=== PATIENT | male | born 1970 | race Caucasian/White ===

== ENCOUNTER 2022-01-13 08:37 | Outpatient (CLI) | payer OTHER ==
[~2022-01-13 08:37] MED LIST: ZESTRIL2.5 MG
== END 2022-01-13 12:47 | disposition home or self-care (01) ==
LOC: NUCLEAR 08:37
PROVIDERS: ATTEND Internal Medicine
DX: R00.1 Bradycardia, unspecified (principal); R55 Syncope and collapse

== ENCOUNTER 2023-06-19 20:33 | Emergency (ER) | payer OTHER ==
[~2023-06-19] VITALS: Ht 180.3 cm; Wt 101.2 kg
[2023-06-19] MEDS ORDERED: DICLOFENAC SOD100 GM TP (21:21)
[2023-06-19] MEDS ORDERED: BUPROPION XL150 MG PO (21:22)
[2023-06-19] MEDS ORDERED: METOPROLOL SUCC50 MG PO (21:22)
== END 2023-06-19 22:23 | disposition home or self-care (01) ==
LOC: ER 20:33
DX: R53.81 Other malaise (principal); H81.10 Benign paroxysmal vertigo, unspecified ear

== ENCOUNTER 2023-09-19 06:05 | Emergency (ER) | payer OTHER ==
[~2023-09-19] VITALS: Ht 180.3 cm; Wt 99.8 kg
[~2023-09-19 06:05] MED LIST changes: +BUPROPION XL150 MG PO; +DICLOFENAC SOD100 GM TP; +METOPROLOL SUCC50 MG PO
[2023-09-19 08:59] LABS: URINE APPEARANCE Clear; URINE BILIRRUBIN Negative (NEGATIVE); URINE BLOOD Negative; URINE COLOR Yellow; URINE GLUCOSE Negative (NEGATIVE); URINE LEUKOCYTE Negative; URINE NITRATE Negative; URINE PROTEIN Trace (NEGATIVE)
[2023-09-19 09:00] LABS: URINE EPITHELIAL CELLS 1.6 uL (0.0-38.8); URINE RBC 5.7 uL (0.0-20.8); URINE WBC 2.1 uL (0.0-23.2)
[2023-09-19 09:07] LABS: HEMATOCRIT 49.3 % (39.0-48.0); HEMOGLOBIN 16.6 g/dL (13-16.00); MEAN CORPUSCULAR HEMOGLOBIN 27.9 pg (27.00-32.0); MEAN CORPUSCULAR HGB CONC 33.6 g/dl (32.0-36.0); PLATELET COUNT 181 K/uL (150-450); RED BLOOD COUNT 5.94 M/uL (4.00-6.00); RED CELL DISTRIBUTION WIDTH 13.7 % (11.5-14.5)
[2023-09-19 10:14] LABS: ALBUMIN 4.1 gm/dL (3.4-5.0); BILIRUBIN TOTAL 1.52 mg/dL (0.3-1.2); CREATININE SERUM 1.26 mg/dL (0.70-1.30); GFR 60.33; GLOBULINA 4.5 G/DL (2.4-3.5); POTASSIUM 3.35 mEq/L (3.5-5.1); TOTAL PROTEIN 8.6 gm/dL (6.4-8.2)
[2023-09-19] MEDS ORDERED: PEPCID AC20 MG PO (10:49)
[2023-09-19] MEDS ORDERED: ZOFRAN8 MG PO (10:49)
== END 2023-09-19 11:00 | disposition home or self-care (01) ==
LOC: ER 06:06
PROVIDERS: General Practice
DX: K62.5 Hemorrhage of anus and rectum (principal); R11.0 Nausea; R50.9 Fever, unspecified; R10.9 Unspecified abdominal pain; Z20.822 Contact with and (suspected) exposure to COVID-19; I10 Essential (primary) hypertension